=== PATIENT | female | born 1960 | race Caucasian/White ===

== ENCOUNTER 2017-10-10 11:13 | Inpatient (IN) | payer OTHER ==
[2017-10-10] MEDS: fentaNYL PF VIAL 100 MCG/2 ML VIAL IV ×5 (11:47→18:13)
[2017-10-10] MEDS ORDERED: PROPOFOL 20 ML IV ×2 (12:41→15:08)
[2017-10-10] MEDS: PROPOFOL 10 MG/ML (20ML) VIAL. IV (12:45)
[2017-10-10] MEDS: fentaNYL PF VIAL 100 MCG/2 ML VIAL IM (13:30)
[2017-10-10] MEDS ORDERED: MORPHINE SULFATE 2 MG/ML DISP.SYRIN. IV ×3 (14:00→17:30)
[2017-10-10] MEDS ORDERED: hydrALAZINE 20 MG/ML VIAL. IVP (14:00)
[2017-10-10] MEDS ORDERED: ACETAMINOPHEN 325 MG TABLET. PO (14:00)
[2017-10-10] MEDS ORDERED: ALBUTEROL SULFATE 2.5 MG/3 ML NEBU. NEB (14:00)
[2017-10-10] MEDS ORDERED: fentaNYL PF VIAL 100 MCG/2 ML VIAL IV (14:00)
[2017-10-10] MEDS ORDERED: DOCUSATE SODIUM 100 MG CAPSULE. PO (14:00)
[2017-10-10] MEDS: IV RINGERS,LACTATED 1000ML 1,000 ML IV (14:43)
[2017-10-10] MEDS ORDERED: fentaNYL PF VIAL 100 MCG/2 ML VIAL (15:07)
[2017-10-10] MEDS ORDERED: SUCCINYLCHOLINE 200 MG/10 ML VIAL. (15:08)
[2017-10-10] MEDS ORDERED: DESFLURANE 61 TO 120 MINUTES IH (15:08)
[2017-10-10] MEDS ORDERED: DEXAMETHASONE SOD PHOS 20 MG/5 ML VIAL. (15:08)
[2017-10-10] MEDS ORDERED: ONDANSETRON PF 4 MG/2 ML VIAL. (15:08)
[2017-10-10] MEDS ORDERED: KETOROLAC 30 MG/ML INJ FOR OR. INJ (15:08)
[2017-10-10] MEDS ORDERED: PHENYLEPHRINE in 0.9% NACL PF 1 MG/10 ML SYRINGE. IV (15:47)
[2017-10-10] MEDS ORDERED: DEXTROSE 50% 25 GM / 50ML DISP.SYRIN. IV (17:30)
[2017-10-10] MEDS ORDERED: MORPHINE SULFATE 4 MG/ML DISP.SYRIN. IV (17:30)
[2017-10-10] MEDS ORDERED: ONDANSETRON PF 4 MG/2 ML VIAL. IV (17:30)
[2017-10-10] MEDS ORDERED: PROCHLORPERAZINE 10 MG/2 ML VIAL. IV (17:30)
[2017-10-10] MEDS ORDERED: POLYETHYLENE GLYCOL 3350 17 GM PACKET. PO (17:30)
[2017-10-10] MEDS ORDERED: oxyCODONE IR 5 MG TABLET PO (17:30)
[2017-10-10] MEDS: ONDANSETRON PF 4 MG/2 ML VIAL. IV (21:44)
[2017-10-10] MEDS: traMADol 50 MG TABLET PO (21:44)
[2017-10-10] MEDS: oxyCODONE/APAP 5/325 1 TAB TABLET PO (21:44)
[2017-10-11] MEDS: HYDROcodone/APAP 7.5/325MG 1 TAB TABLET PO ×3 (02:00→15:03)
[2017-10-11 04:10] LABS: ADD MAN DIFF? NO
[2017-10-11 04:16] LABS: BASO % 0 % (0-3); EOS % 0 % (0-3); HEMATOCRIT 36.3 % (36.0-47.0); HEMOGLOBIN 12.4 g/dL (12.0-15.5); LYMPH # 1.4 x10^3/uL (1.0-4.8); LYMPH % 10 % (24-48); MEAN CORPUSCULAR HEMOGLOBIN 31 pg (25-35); MEAN CORPUSCULAR HGB CONC 34 g/dL (31-37); MEAN CORPUSCULAR VOLUME 91 fL (79-100); MONO # 0.8 x10^3/uL (0.0-1.1); MONO % 6 % (0-9); NEUT % 83 % (31-73); PLATELET COUNT 255 x10^3/uL (140-400); RED BLOOD COUNT 4.01 x10^6/uL (3.50-5.40); RED CELL DISTRIBUTION WIDTH 13.1 % (11.5-14.5); WHITE BLOOD COUNT 13.2 x10^3/uL (4.0-11.0)
[2017-10-11 04:30] LABS: ANION GAP 7 (6-14); BLOOD UREA NITROGEN 14 mg/dL (7-20); CALCIUM 8.7 mg/dL (8.5-10.1); CARBON DIOXIDE 28 mmol/L (21-32); CHLORIDE 104 mmol/L (98-107); GFR 57.6; GLUCOSE 147 mg/dL (70-99); POTASSIUM 4.4 mmol/L (3.5-5.1); SODIUM 139 mmol/L (136-145)
[2017-10-11] MEDS ORDERED: MAGNESIUM HYDROXIDE 2,400 MG/30 ML ORAL.SUSP. PO (06:00)
[2017-10-11] MEDS: SENNOSIDES/DOCUSATE 8.6/50MG TABLET. PO (09:00)
[2017-10-11] MEDS ORDERED: BISACODYL 10 MG SUPP.RECT. PR (16:00)
== END 2017-10-11 16:45 | disposition home or self-care (01) | DRG 494 ==
LOC: ER 11:13 → 4 NORTH 13:34
PROC: 0QSH04Z Reposition Left Tibia with Internal Fixation Device, Open Approach (ICD-10-PCS; principal; 2017-10-10 15:00)
PROC: 0QSK04Z Reposition Left Fibula with Internal Fixation Device, Open Approach (ICD-10-PCS; 2017-10-10 15:00)
PROC: 0SSGXZZ Reposition Left Ankle Joint, External Approach (ICD-10-PCS; 2017-10-10 15:36)
DX: S82.842A Displaced bimalleolar fracture of left lower leg, initial encounter for closed fracture (principal); I10 Essential (primary) hypertension; W10.8XXA Fall (on) (from) other stairs and steps, initial encounter; E66.01 Morbid (severe) obesity due to excess calories; Z68.39 Body mass index [BMI] 39.0-39.9, adult; G47.33 Obstructive sleep apnea (adult) (pediatric); J45.20 Mild intermittent asthma, uncomplicated; Y93.89 Activity, other specified; Y92.89 Other specified places as the place of occurrence of the external cause; Y99.8 Other external cause status; Z82.49 Family history of ischemic heart disease and other diseases of the circulatory system; Z90.710 Acquired absence of both cervix and uterus; Z88.8 Allergy status to other drugs, medicaments and biological substances; Z91.041 Radiographic dye allergy status
CPT/HCPCS: 36415; 73610; 76000; 80048; 82306; 85025; 97110-GP; 97116-GP; 97162-GP; 97166-GO; 97530-GP; 99285; 99285-25; C1713; G8978-CK-GP; G8979-CJ-GP; G8980-CJ-GP; J0330; J0690; J1100; J1885; J2370; J2405; J2704; J3010; J7120